=== PATIENT | female | born 1970 | race Caucasian/White ===

== ENCOUNTER 2023-11-20 11:51 | Emergency (ER) | payer OTHER, SELFPAY ==
[2023-11-20 11:56] VITALS: BP 135/93; PULSE 63; RESP 18; TEMP 36.4; O2SAT 99; BMI 33.1
--- NOTE | 2023-11-20 14:00 | ED_ITS ---
HPI - Abdominal Pain General Chief Complaint: Abdominal Pain Stated Complaint: R side pain Time Seen by Provider: 11/20/23 13:38 History of Present Illness HPI narrative: This 53-year-old female comes in reporting brief episodes of right middle abdominal pain that last for a few seconds. These symptoms started over the last day or so. She does not report any fever, nausea, vomiting, diarrhea, or dysuria. She did have a liposuction with panniculectomy about 3 months ago and states that she has not felt well since then and also has numbness in her mid abdomen secondary to that surgery. She does not report any loss of appetite. She arrives here with normal vital signs. Related Data Home Medications ?Medication ?Instructions ?Recorded ?Confirmed atorvastatin 10 mg tablet 10 mg PO DAILY 11/20/23 11/20/23 doxycycline monohydrate 50 mg 50 mg PO DAILY 11/20/23 11/20/23 capsule levothyroxine 50 mcg tablet 50 mcg PO DAILY 11/20/23 11/20/23 metformin 500 mg tablet,extended 500 mg PO BID 11/20/23 11/20/23 release 24 hr oxybutynin chloride 5 mg 5 mg PO DAILY 11/20/23 11/20/23 tablet,extended release 24 hr Previous Rx's ?Medication ?Instructions ?Recorded gabapentin 100 mg capsule 100 mg PO TID #20 caps 11/20/23 ketorolac 10 mg tablet 10 mg PO Q8H 5 days #15 tabs 11/20/23 Allergies Allergy/AdvReac Type Severity Reaction Status Date / Time No Known Drug Allergies Allergy Verified 11/20/23 11:59 Review of Systems Status of ROS Reports: 10 or more systems reviewed and unremarkable except as noted in History and below Narrative Constitutional: No fevers, no weight gain or loss. Eyes: No discharge. No vision changes. HENT: No congestion, no sore throat, no ear pain. Cardiovascular: No chest pain, no palpitations. Respiratory: No shortness of breath, no wheezes, no cough. Gastrointestinal: No vomiting, no diarrhea. Brief episodes of abdominal pain as described above. Genitourinary: No dysuria, no hematuria. Musculoskeletal: Normal range of motion. Skin: No rashes, no pruritis. Neurological: No dizziness, weakness, sensory change, speech change. Endo/Heme/Allergies: No bruising or bleeding. No polydipsia. Pysch: no suicidality, no anxiety, no insomnia. All other systems reviewed and are negative. PFSH PFS Social History Smoking Status: Never smoker How often do you have a drink containing alcohol: never AUDIT-C Alcohol total score: 0 Non-prescribed substance use: denies use Exam Narrative: Exam Narrative: Constitutional: Well-developed, well-nourished, no acute distress. HEENT: Normocephalic, atraumatic. Neck: Normal range of motion. Nontender. Supple. Heart: Regular. No murmurs. Normal rate. Intact distal pulses. Lungs: Clear to auscultation. No chest discomfort. No wheezes, rhonchi, or rales. Abdomen: Normal bowel sounds. Nontender. No rebound tenderness. She currently does not have any discomfort including with deep palpation on exam. Genitalia: Deferred. Back: No midline tenderness. Normal range of motion. Extremities: Normal range of motion. No injury. Skin: Intact. No rash. Warm. No erythema or pallor. Neurologic: No altered sensation. No weakness. Alert and oriented. Psychiatric: No suicidality. No anxiety or depression. No insomnia. Nursing notes and vitals signs are reviewed. Const: Vital Signs, click to edit/add: Vital Signs - 24 hr 11/20/23 11:56 Temperature 97.5 F L Pulse Rate [Left P ulse Oximeter] 63 Respiratory Rate 18 Blood Pressure [Ri ght Upper Arm] 135/93 H Pulse Oximetry 99 Oxygen Delivery Me thod Room Air Course Vital Signs Vital signs: Initial Vital Signs Temperature 97.5 F L 11/20/23 11:56 Temperature Source Temporal Artery Scan 11/20/23 11:56 Pulse Rate 63 11/20/23 11:56 Pulse Rhythm Regular 11/20/23 11:56 Pulse Strength 3+ Normal 11/20/23 11:56 Respiratory Rate 18 11/20/23 11:56 Blood Pressure 135/93 H 11/20/23 11:56 Blood Pressure Mean 107 H 11/20/23 11:56 Blood Pressure Position Sitting 11/20/23 11:56 Pulse Oximetry 99 11/20/23 11:56 Oxygen Delivery Method Room Air 11/20/23 11:56 Vital Signs Temperature 97.5 F L 11/20/23 11:56 Pulse Rate 63 11/20/23 11:56 Respiratory Rate 18 11/20/23 11:56 Blood Pressure 135/93 H 11/20/23 11:56 Pulse Oximetry 99 11/20/23 11:56 Oxygen Delivery Method Room Air 11/20/23 11:56 Temperature 97.5 F L 11/20/23 11:56 Pulse Rate 63 11/20/23 11:56 Respiratory Rate 18 11/20/23 11:56 Blood Pressure 135/93 H 11/20/23 11:56 Pulse Oximetry 99 11/20/23 11:56 Oxygen Delivery Method Room Air 11/20/23 11:56 MDM - Abdominal Pain MDM Narrative Medical decision making narrative: This patient is having brief episodes of abdominal discomfort that are currently not present. She states that she feels normal and has normal vital signs. I did discuss lab and imaging options with the patient and in a process of shared decision-making she declined any studies for now. She does understand certain s ymptoms and signs that would indicate a need for further evaluation. The pain seems to come rather briefly and is more less on the edge of the area where she has numbness secondary to her panniculectomy. It does seem like it is a nerve mediated symptom. She is okay to be discharged home. I did provide prescriptions for Toradol and gabapentin to be used as needed. Discharge Plan Discharge Clinical Impression: Abdominal pain Patient Disposition: Home, Self-Care Condition: Stable Additional Instructions: Take medication as needed and directed. Follow up with MD or return if symptoms are worsening. Prescriptions: New gabapentin 100 mg capsule 100 mg PO TID Qty: 20 2RF ketorolac 10 mg tablet 10 mg PO Q8H 5 Days Qty: 15 0RF No Action atorvastatin 10 mg tablet 10 mg PO DAILY doxycycline monohydrate 50 mg capsule 50 mg PO DAILY levothyroxine 50 mcg tablet 50 mcg PO DAILY oxybutynin chloride 5 mg tablet extended release 24hr 5 mg PO DAILY metformin 500 mg tablet extended release 24 hr 500 mg PO BID Follow Up/Referrals: Evelin Mai MD [Primary Care Provider] - Stand Alone Forms: [facility] Info Instructions
== END 2023-11-20 14:23 | disposition home or self-care (01) ==
LOC: ED 14:23
PROVIDERS: Emergency Provider Emergency Medicine Emergency Medical Services; PCP Family Medicine
DX: R10.9 Unspecified abdominal pain (principal)
CPT/HCPCS: 99283; 99284

== ENCOUNTER 2024-08-11 07:25 | Emergency (ER) | payer OTHER, SELFPAY ==
[2024-08-11] VITALS (13 sets, daily range): BP systolic 137–193; BP diastolic 88–96; PULSE 54–74; RESP 12–18; TEMP 35.5; O2SAT 96–100; BMI 31.6
--- OUTSIDE RECORDS SUMMARY | 2024-08-11 07:28 | XMS_ITS | Clinical Summary ---
Author Organization [employer] Address [address] [place] [address] Care Team Providers Care Buffer Inflated Pad Name Role Phone Luisa Jiang DO Primary Care Provider [phone] Allergies Active Allergy Reactions Criticality Noted Date Comments Morphine Nausea And Vomiting 10/19/2013 Medications MULTIVITAMINS,THER APEUTIC (THERAGRAN ORAL) Take by mouth. Active blood-glucose meterIndications:T ype 2 diabetes mellitus without complication, without long-term current use of insulin (HC) Dispense meter covered by pts insurance. 1 Each 07/30/19 24 Active blood sugar diagnostic stripIndications:T ype 2 diabetes mellitus without complication, without long-term current use of insulin (HC) Dispense item covered by pt ins. E11.9 NIDDM type II - Test 1 time/day 100 Each 3 07/30/19 24 Active lancetsIndications :Type 2 diabetes mellitus without complication, without long-term current use of insulin (HC) Dispense item covered by pt ins. E11.9 NIDDM type II - Test 1 time/day 100 Each 3 07/30/19 24 Active atorvastatin (LIPITOR) 10 mg tabletIndications: Hyperlipidemia, unspecified hyperlipidemia type Take 1 Tablet (10 mg) by mouth at bedtime. 90 Tablet 3 07/29/19 25 Active metFORMIN (GLUCOPHAGE XR) 500 mg Extended-Release tabletIndications: Type 2 diabetes mellitus without complication, without long-term current use of insulin (HC) Take 1 Tablet (500 mg) by mouth two times daily with meals. 180 Tablet 3 07/29/19 25 Active oxybutynin XL (DITROPAN XL) 5 mg CR tabletIndications: Overactive bladder Take 1 Tablet (5 mg) by mouth once daily. 90 Tablet 3 07/29/19 25 Active metroNIDAZOLE (METROGEL) 1 % gelIndications:Ros acea Apply topically to affected area(s) once daily. 60 g 3 07/29/19 25 Active levothyroxine (SYNTHROID) 75 mcg tabletIndications: Subclinical hypothyroidism Take 1 Tablet (75 mcg) by mouth before breakfast. 90 Tablet 3 07/30/19 25 Active metroNIDAZOLE (METROGEL) 1 % gelIndications:Ros acea Apply topically to affected area(s) once daily. 60 g 07/11/19 23 025 Discontin ued(Reord er (E-cancel not sent)) oxybutynin XL (DITROPAN XL) 5 mg CR tabletIndications: Overactive bladder Take 1 Tablet (5 mg) by mouth once daily. 90 Tablet 3 07/24/19 24 025 Discontin ued(Reord er (E-cancel not sent)) atorvastatin (LIPITOR) 10 mg tabletIndications: Hyperlipidemia, unspecified hyperlipidemia type Take 1 Tablet (10 mg) by mouth at bedtime. 90 Tablet 3 07/28/19 24 025 Discontin ued(Reord er (E-cancel not sent)) metFORMIN (GLUCOPHAGE XR) 500 mg Extended-Release tabletIndications: Type 2 diabetes mellitus without complication, without long-term current use of insulin (HC) Take 1 Tablet (500 mg) by mouth two times daily with meals. 180 Tablet 3 10/22/19 24 025 Discontin ued(Reord er (E-cancel not sent)) doxycycline monohydrate 50 mg capsuleIndications :Rosacea Take 1 Capsule (50 mg) by mouth once daily. 90 Capsule 05/03/20 24 025 Discontin ued(*Med complete/ Regimen complete/ Level of care change) levothyroxine (SYNTHROID) 75 mcg tabletIndications: Subclinical hypothyroidism Take 1 Tablet (75 mcg) by mouth before breakfast. 90 Tablet 05/03/20 24 025 Discontin ued(Reord er (E-cancel not sent)) Active Problems Problem Noted Date Diagnosed Date Subclinical hypothyroidism 04/23/2024 Type 2 diabetes mellitus wit hout complication, without long-term current use of insulin 04/23/2024 Prediabetes 04/20/2020 Obesity, Class I, BMI 30-34.9 07/09/2017 Hot flashes 07/09/2017 Rosacea 08/05/2014 Incontinence 08/05/2014 Menorrhagia 10/19/2013 Pap smear of cervix with ASCUS, cannot exclude H GSIL 06/23/2013 Overview (07/20/2021): 2013 ASC-H (noted in scans) 09/06/2013 [place]: (no results available) 07/09/2017 NIL 06/01/2020 NIL/HPV negative 06/27/2021 NIL/HPV negative [facility] [place] [facility] [place]-[facility] after high-grade histology or cytology: Continued surveillance at 3 year intervals is recommended for at least 25 years after treatment of high-grade histology (SRIRAM 2, 3, CIS or AIS) or high-grade cytology (HSIL, AGC, ASC-H, LSIL, Cannot exclude HSIL) even if beyond age 65. Plan: Pap/HPV due 06/2024 Encounters Date Type Department Care Team Description 07/29/2024 7:55 AM SITE CONTROLLER Office Visit [facility] [address] [place] [address] Luias Jiang, DO Physical (54 no concerns); Immunization/Injectio n 07/29/2024 Travel from Last 3 Months Immunizations Name Administration Dates Next Due COVID-19 vaccine (Missy-J& J) [facility] 06/14/2021 Hepatitis A (Adult) 08/20/2011,08/21/2010 Hepatitis B (Adult) 10/12/1993,05/15/1993,1992 INFLUENZA, IIV3 PF (AGE >= 6 MO) 04/23/2024 Influenza A (H1N1), Inactivated 04/28/2009 Influenza Virus, Unspecified 05/12/2008 Influenza, IIV3 (Age >=3 years) 03/17/2014,08/20,04/09/2010 Influenza, IIV4 03/12/2023, 3,06/27/2021,2019,03/16/2018,07/09/2017,06/07/2016 Pneumococcal Conj 20-valent (Prevnar 20) 04/23/2024 Td (Age >=7 Years) 11/04/1994 Tdap 07/29/2024,08/05/2014,08/21/2010 Zoster (Shingrix-RZV, recombinant) 10/26/2020, Family History Medical History Relation Name Comments Diabetes Father Heart Disease Father Hyperlipidemia Father Dementia Mother Lewy Body Demen tia Hyperlipidemia Mother Parkinsonism Mother Anesthesia Malignant Hyperthermia No Family History Blood Disease No Family History Cancer-breast No Family History Cancer-colon No Family History Cancer-ovarian No Family History Premature CHD (under age 60) No Family History Relation Name Status Comments Father Alive Mother Alive Social History Tobacco Use Types Packs/Day Years Used Date Smoking Tobacco: Never Smokeless Tobacco: Never Tobacco Cessation:Counseling Given: Yes Alcohol Use Standard Drinks/Week Comments No 0 (1 standard drink = 0.6 oz pur e alcohol) PHQ-2 Answer Date Recorded PHQ-2 TOTAL SCORE 1 07/29/2024 Social Connections Answer Date Recorded Do you often feel lonely or isolated from those around you? 0 07/29/2024 Financial Resource Strain Answer Date R ecorded Difficulty of Paying Living Expenses 3 07/29/2024 Difficulty of Paying Living Expenses Not on file 07/29/2024 Food Insecurity Answer Date Recorded Do you worry your food will run out before you are able to buy more? 1 07/29/2024 Transportation Needs Answer Date Record ed Does lack of transportation keep you from medica l appointments? 1 07/29/2024 Does lack of transportation keep you from work, meetings or getting things that you need? 1 07/29/2024 Housing Stability Answer Date Recorded What is your housing situation today? 1 07/29/2024 Utilities Answer Date Recorded Do you have trouble paying f or utilities (for example, heat, electricity, water, phone)? 1 07/29/2024 Comments No Sex and Gender Information Value Date Recorded Sex Assigned at Not on file Legal Sex Female 5:24 AM SITE CONTROLLER Gender Identity Not on file Sexual Orientation Not on file Obstetrics History Para Term AB IAB SAB Ectopic Multiple Livin g Live Births 4 4 4 4 Date Outcome GA Total Labor Labor/2nd/3rd Weight Sex Type Anes PTL Sumi A1 A5 Name Clin Term Term Term Term Last Filed Vital Signs Vital Sign Reading Time Taken Comments Blood Pressure 118/84 07/29/2024 8:00 AM SITE CONTROLLER Pulse 72 07/29/2024 8:00 AM SITE CONTROLLER Temperature 36.9 C (98.4 F) 12/23/2018 3:53 PM CDT Respiratory Rate 16 10/21/2013 1:45 PM CDT Oxygen Saturation 98% 07/23/2023 4:10 PM SITE CONTROLLER Inhaled Oxygen Concentration - - Weight 90.1 kg (198 lb 9.6 oz) 07/29/2024 8:00 A M SITE CONTROLLER Height 168 cm (5' 6.14) 07/29/2024 8:00 AM SITE CONTROLLER Body Mass Index 31.92 07/29/2024 8:00 AM SITE CONTROLLER Plan of Treatment Health Maintenance Due Date Last Done Comments COVID-19 vaccine series ( season) 2024 06/14/2021 Mammogram for age 45-75 04/23/2025 04/23/20, 01/23/2023, 01/16/2022, Additional history exists BMI (ht and wt on same day) for age 18+ 07/29/2025 07/29/2024, 07/16/2023, 03/12/2023, Additional history exists Depression screening for age 12+ 07/29/2025 07/29/2024, 07/16/2023, 07/11/2022, Additional history exists Fecal testing sDNA-FIT (Tatamy guard) for age 45-75 04/02/2026 04/02/2023 Pap test for age 21-65 07/29/2027 , 07/29/2024, 06/27/2021, Additional history exists Lipids for age 45-75 07/16/2028 07/16/2023, 07/11/2022, 06/27/2021, Additional history exists Tetanus booster 07/29/2034 07/29/2024, 07/24, 08/21/2010, Additional history exists Hepatitis B series for Diabetes Completed 10/12/1993, 05/15/1993, 04/13/1993 Zoster (shingles) series for age 50+ Completed 10/26/2020, 05/31/2020 HIV for age 15-65 Completed 07/16/2023 Hepatitis C screening for ag e 18-79 Completed 07/16/2023 Influenza for age 50-64 Completed 04/23/20, 03/12/2023, 07/11/2022, Additional history exists Pneumococcal series for age 50+ Completed Tdap Completed 07/29/2024, 07/24, 08/21/2010 Medical Devices Implanted Type Area Roof [employer] Maker Helper Device Identifier Shelf Expiration Date Model / Serial / Lot Sling Miniarc - [id number] Implanted:Qty: 1 on 10/29/2011 by Keira Bernal MD at [facility] N/A: [facility] 03/21/2013 [id number] / / [id number] Procedures Procedure Name Priority Date/Time Associated Diagnosis Comments FORESTRY PATROLMAN THIN PREP PAP SCREEN IMAGED Routine 07/29/2024 8:40 AM SITE CONTROLLER Screening for cervical cancer HPV HIGH RISK Routine 07/29/2024 8:40 AM SITE CONTROLLER Screening for cervical cancer TSH Add On 07/29/2024 8:40 AM SITE CONTROLLER Subclinical hypothyroidism BASIC METABOLIC PANEL Routine 07/29/2024 7:49 AM SITE CONTROLLER Type 2 diabetes mellitus without complication, without long-term current use of insulin (HC) HEMOGLOBIN A1C MONITORING (POCT) Routine 07/29/2024 7:48 AM SITE CONTROLLER Type 2 diabetes mellitus without complication, without long-term current use of insulin (HC) URINE ALBUMIN TO CREATININE RATIO, RANDOM Routine 07/29/2024 7:47 AM SITE CONTROLLER Type 2 diabetes mellitus without complication, without long-term current use of insulin (HC) XR MAMMO BILAT SCREENING Routine 04/23/2024 9:05 AM CDT Breast cancer screening by mammogram ANTI HIV 1/2 Routine 07/16/2023 8:27 AM SITE CONTROLLER Screening for HIV (human immunodeficiency virus) ANTI HCV Routine 07/16/2023 8:27 AM SITE CONTROLLER Need for hepatitis C screening test LIPID PANEL W REFLEX MEASURED LDL Routine 07/16/2023 8:27 AM SITE CONTROLLER Obesity, Class I, BMI 30-34.9 SDNA-FIT EXTERNAL (COLOGUARD) Routine 04/02/2023 7:00 AM CDT Screening for colon cancer from Last 3 Months or Most Recently Relevant to Health Maintenance Results * FORESTRY PATROLMAN THIN PREP PAP SCREEN IMAGED [[id number]] (07/29/2024 8:40 AM SITE CONTROLLER) Case Report Gynecologic Cytology Report Case: [id number] Authorizing Provider: Luisa Jiang DO Collected: 07/29/2024 0840 Ordering Location: [facility] Received: 07/29/2024 0858 Clinic First Screen: Pro Martel Specimen: FORESTRY PATROLMAN ThinPrep Vial Screening, Cervical 08/10/2024 3:05 PM [facility]ITE CONTROLLER [facility] INTERPRETATION/ RESULT NEGATIVE FOR INTRAEPITHELIAL LESION OR MALIGNANCY (NIL) (none) 08/10/2024 3:05 PM SITE CONTROLLER [facility] ENTRAL LABORAT[facility] IMEN ADEQUACY Satisfactory for evaluation Endocervical cells cannot be evaluated due to severe atrophy 08/10/2024 3:05 PM SITE CONTROLLER [facility] HPV REQUEST HPV and PAP 08/10/2024 3:05 PM SITE CONTROLLER [facility] Date of LMP n/a 08/10/2024 3:05 PM SITE CONTROLLER [employer] ENTRAL LABORATORY Last Pap Date 06/27/21 08/10/2024 3:05 PM SITE CONTROLLER [facility] Last Pap Result NIL 3:05 PM SITE CONTROLLER [facility] Abnormal Pap or [place] Bx in last 5 years No 08/10/2024 3:05 PM SITE CONTROLLER [facility] Menstrual Status Ablation 08/10/2024 3:05 PM [facility]ITE CONTROLLER [facility] [place] Bx Done Today No 08/10/2024 3:05 PM [facility] Additional Information None given 08/10/2024 3:05 PM [facility] Comment: Cytology is screened at [facility] - [address], [place] [address] and [facility] - [address] [place] [address], [place] [address] and [facility] - [address] [place] [address] Interpreted at [facility] - [address] [place] [address], [place] [address] Automated Review Successful 08/10/2024 3:05 PM [facility] Comment:Specimen processed s uccessfully by automated sports official device, ThinPrep Imaging System, [employer] ANCILLARY TESTING FORESTRY PATROLMAN HPV Ordered, Please see separate report 08/10/2024 3:05 PM [facility] Note The pap test is a screening technique, not a diagnostic procedure. It is used primarily to screen for squamous cancers and precursor lesions. Published studies have shown that it is subject to both false negative and false positive results. The pap test should not be used as the sole means to diagnose or exclude pre-malignant and malignant lesions. 08/10/2024 3:05 PM [facility] Other (Cervical) Non-Blood / Unknown 07/29/2024 8:40 AM SITE CONTROLLER 07/29/2024 8:58 AM SITE CONTROLLER us Luisa Jiang DO PATHOLOGY/CYTOLOGY Final R esult [facility] [address] [place] [address], [place] * TSH (07/29/2024 8:40 AM SITE CONTROLLER) TSH 1.62 0.40 - 4.50 mIU/L [facility] Blood BLOOD SPECIMEN / Unknown 07/29/2024 8:40 AM SITE CONTROLLER 07/29/2024 8:41 AM SITE CONTROLLER Luisa Davis Apolinar CHEMISTRY Final Resu lt Performing Organization Address City/[facility]/ZIP Co de Phone Number [employer] [facility] [address] [place] [address], [place] [phone] [facility] [address] [place] [address] * HPV HIGH RISK (07/29/2024 8:40 AM SITE CONTROLLER) TYPE 16 Negative Negative 08/02/2024 3:19 PM SITE CONTROLLER [facility] [employer] [facility] TRAL LABORATORY TYPE 18 Negative Negative 08/02/2024 3:19 PM SITE CONTROLLER [facility] TRAL LABORATORY OTHER HIGH RISK TYPES Negative Negative 08/02/2024 3:19 PM [facility]ITE CONTROLL[facility] Other (Cervical) Non-Blood / Unknown 07/29/2024 8:40 AM SITE CONTROLLER 07/29/2024 4:20 PM SITE CONTROLLER Narrative [facility]-CENTRAL LABORATORY - 08/02/2024 3:19 PM SITE CONTROLLER HPV types 16, 18, 31, 33, 35, 39, 45, 51, 52, 56, 58, 59, 66 and 68 DNA were undetectable or below the pre-set threshold. Methodology: [employer] Kimo 4800 HPV Test Luisa Jiang DO MICROBIOLOGY Final Resu lt Performing Organization Address City/[facility]/ZIP Co de Phone Number [facility] [address] [place] [phone], * (ABNORMAL) BASIC METABOLIC PANEL (07/29/2024 7:49 AM SITE CONTROLLER) GLUCOSE 125(H) 65 - 99 mg/dL [facility] Comment: Fasting reference interval For someone without known diabetes, a glucose value between 100 and 125 mg/dL is consistent with prediabetes and should be confirmed with a follow-up test. UREA NITROGEN (BUN) 13 7 - 25 mg/dL [facility] CREATININE 0.77 0.50 - 1.03 mg/dL [facility] EGFR 90 > OR = 60 mL/min/1. 73m2 [facility] BUN/CREATININE RATIO SEE NOTE: 6 - 22 (calc) [facility] Comment: Not Reported: BUN and Creatinine are within reference range. SODIUM 142 135 - 146 mmol/L [facility] POTASSIUM 4.3 3.5 - 5.3 mmol/L [facility] CHLORIDE 103 98 - 110 mmol/L [facility] CARBON DIOXIDE 29 20 - 32 mmol/L [facility] ELECTROLYTE BALANCE 10 7 - 17 mmol/L (calc) [facility] CALCIUM 9.6 8.6 - 10.4 mg/dL [facility] Blood BLOOD SPECIMEN / Unknown 07/29/2024 7:49 AM SITE CONTROLLER 07/29/2024 7:49 AM SITE CONTROLLER Luisa Jiang DO CHEMISTRY Final Resu lt [employer] [facility] [address] [place] [address], [place] [phone] [facility] [address] [place] [address] * (ABNORMAL) POCT Hemoglobin A1C Monitoring (07/29/2024 7:48 AM SITE CONTROLLER) POC HEMOGLOBIN A1C 6.4(H) <6.0 % OF TOTAL HGB [facility] Comment: Any point of care results exhibiting inconsistency with the patient's clinical status should be repeated using a different testing method. Blood BLOOD SPECIMEN / Unknown 07/29/2024 7:48 AM SITE CONTROLLER 07/29/2024 7:48 AM SITE CONTROLLER us Luisa Jiang DO CHEMISTRY Final Resu lt [facility] [address] [place] [address], [place] [phone] [facility] [address] [place] [address] * URINE ALBUMIN TO CREATININE RATIO, RANDOM (07/29/2024 7:47 AM SITE CONTROLLER) ALB RAND URINE <12.0 mg/L 07/29/2024 4:11 PM SITE CONTROLLER [facility] TRAL LABORATORY CREATININE,URINE 0.94 g/L 07/29/19 25 4:11 PM SITE CONTROLLER [facility] TRAL LABORATORY ALBUMIN TO CREATININE RATIO,RAND UR 07/29/2024 4:11 PM SITE CONTROLLER [facility] TRAL LABORATORY Comment:Urine Albumin below measurement range, unable to calculate. Urine URINE SPECIMEN / Unknown Non-Blood / Unknown 07/29/2024 7:47 AM SITE CONTROLLER 07/29/2024 7:47 AM SITE CONTROLLER Narrative [facility] - 07/29/2024 4:11 PM SITE CONTROLLER If Albumin to Creatinine Ratio is elevated, consider the following: Elevations seen with incipient nephropathy associated with diabetes mellitus or hypertension. Stress, exercise,hematuria, and urinary tract infection may also produce elevated results. If clinically indicated, confirm with 24 Hour Albumin to Creatinine Ratio. us Luisa Jiang DO URINE Final Resu lt [facility] [address] [place] [address], [place] * XR MAMMO BILAT SCREENING (04/23/2024 9:05 AM CDT) Anatomical Region Laterality Modality BREASTS, Breast Left, Breast Right Bilateral Mammography Impressions 04/23/2024 3:55 PM CDT There is no radiographic evidence for malignancy. Recommend annual mammograms. MAMMOGRAM ASSESSMENT: ACR 1 Negative PATIENTS: You will also receive a letter with your examination results in an easy to read format. If you have questions about your results, please contact your referring provider. Narrative 04/23/2024 3:55 PM CDT For Patients: As a result of the Century Cures Act, medical imaging exams and procedure reports are released immediately into your electronic medical record. You may view this report before your referring provider. If you have questions, please contact your health care provider. XR MAMMO BILAT SCREENING [[id number]] CLINICAL HISTORY: This is an asymptomatic 54 y.o. patient. INDICATION FOR EXAM: Mammogram Screening. TECHNIQUE: CC & MLO views were obtained. This study was evaluated with the assistance of Computer-Aided Detection. COMPARISON FILM: Yes 01/23/23 [facility] 01/16/22 [facility] FINDINGS: The breasts are almost entirely fatty. There are no dominant masses, suspicious micro calcifications or areas of architectural distortion. Luisa Jiang DO MAMMO Final Resu lt * (ABNORMAL) LIPID PANEL W REFLEX MEASURED LDL (07/16/2023 8:27 AM SITE CONTROLLER) CHOLESTEROL,TOTAL 202(H) 100 - 199 mg/dL 07/16/2023 6:20 PM [facility] TRAL LABORATORY Comment: Cholesterol, Total Reference Ranges Desirable <200 mg/dL Borderline 200-239 mg/dL High >=240 mg/dL TRIGLYCERIDES 205(H) <150 mg/dL 07/16/2023 6:20 PM [facility] TRAL LABORATORY HDL CHOLESTEROL 42 >40 mg/dL 6:20 PM SITE CONTROLLER [facility] TRAL LABORATORY NON-HDL CHOLESTEROL 160(H) <145 mg/dl 07/16/2023 6:20 PM [facility] TRAL LABORATORY CHOL/HDL RATIO 4.81(H) <4.50 07/16/2023 6:20 PM SITE CONTROLLER [facility] TRAL LABORATORY LDL CHOLESTEROL 119 <=130 mg/dL 07/16/2023 6:20 PM [facility] TRAL LAB[facility] VLDL CHOLESTEROL 41(H) <=30 mg/dL 07/16/2023 6:20 PM SITE CONTROLLER [facility] TRAL LABORATORY PROVIDER ORDERED STATUS RANDOM 07/16/2023 6:20 PM [facility] TRAL LABORATORY Blood BLOOD SPECIMEN / Unknown Venipuncture / Unknown 07/16/2023 8:27 AM SITE CONTROLLER 07/16/2023 8:28 AM SITE CONTROLLER Luisa Jiang DO CHEMISTRY Final Resu lt Performing Organization Address City/[facility]/ZIP Co de Phone Number [facility] [address] [place] [phone], [place] * ANTI HCV (07/16/2023 8:27 AM SITE CONTROLLER) [facility] HEPATITIS C ANTIBODY Non-Reacti ve Non-React aditi 07/16/2023 6:11 PM SITE CONTROLLER [facility] Comment:Please note, per www .CDC.gov: If a patient is known to be at high risk of HCV infection, or is symptomatic, and the physician's suspicion of HCV infection is high, HCV RNA testing is often employed and is of diagnostic value, even after an initial negative anti-HCV test result. Blood BLOOD SPECIMEN / Unknown Venipuncture / Unknown 07/16/2023 8:27 AM SITE CONTROLLER 07/16/2023 8:28 AM SITE CONTROLLER Luisa Jiang DO SEND OUTS Final Resu lt Performing Organization Address [facility] Co de Phone Number [facility] [address] [place] [address], [place] * ANTI HIV 1/2 [[id number]] (07/16/2023 8:27 AM SITE CONTROLLER) [facility] HIV-1/HIV-2 SCREEN Non-Reacti ve Non-Reacti ve 07/16/2023 6:08 PM SITE CONTROLLER [facility] Comment:HIV-1 p24 and HIV-1/ HIV-2 Ab Not Detected. Blood BLOOD SPECIMEN / Unknown Venipuncture / Unknown 07/16/2023 8:27 AM SITE CONTROLLER 07/16/2023 8:28 AM SITE CONTROLLER Luisa Jiang DO SEND OUTS Final Resu lt Performing Organization Address City/[facility]/ZIP Co de Phone Number [facility] [address] [place] [address], [place] * SDNA-FIT EXTERNAL (COLOGUARD) (04/02/2023 7:00 AM CDT) [facility] NONINV COLON CA DNA+OCC BLD SCRN STL-IMP Negative Negative 04/09/2023 12:35 AM CDT [employer] (CLIA #:[id number]) Comment: NEGATIVE TEST RESULT. A negative Cologuard result indicates a low likelihood that a colorectal cancer (CRC) or advanced adenoma (adenomatous polyps with more advanced pre-malignant features) is present. The chance that a person with a negative Cologuard test has a colorectal cancer is less than 1 in 1500 (negative predictive value >99.9%) or has an advanced adenoma is less than 5.3% (negative predictive value 94.7%). These data are based on a prospective cross-sectional study of 10,000 individuals at average risk for colorectal cancer who were screened with both Cologuard and colonoscopy. (Ashley Rankin al, N Engl J Med 2014;370(14):9029-2205) The normal value (reference range) for this assay is negative. COLOGUARD RE-SCREENING RECOMMENDATION: Periodic colorectal cancer screening is an important part of preventive healthcare for asymptomatic individuals at average risk for colorectal cancer. Following a negative Cologuard result, the [place] [employer] and U.S. Multi-Society Task Force screening guidelines recommend a Cologuard re-screening interval of 3 years. References: [place] [employer] Guideline for Colorectal Cancer Screening: https://www.cancer.org/cancer/wgquj-tjitko-wvpklm/lyqqhdzyh-rucblnbhn-gbamlpg/ac s-rec ommendations.html.; Shant DK, Arjun CR, Silver LakhaniK, Colorectal Cancer Screening: Recommendations for Physicians and Patients from the U.S. Multi-Society Task Force on Colorectal Cancer Screening , Am J Gastroenterology 2017; 112:2650-8940. TEST DESCRIPTION: Composite algorithmic analysis of stool DNA-biomarkers with hemoglobin immunoassay. Quantitative values of individual biomarkers are not reportable and are not associated with individual biomarker result reference ranges. Cologuard is intended for colorectal cancer screening of adults of either sex, 45 years or older, who are at average-risk for colorectal cancer (CRC). Cologuard has been approved for use by the U.S. FDA. The performance of Cologuard was established in a cross sectional study of average-risk adults aged 50-84. Cologuard performance in patients ages 45 to 49 years was estimated by sub-group analysis of near-age groups. Colonoscopies performed for a positive result may find as the most clinically significant lesion: colorectal cancer [4.0%], advanced adenoma (including sessile serrated polyps greater than or equal to 1cm diameter) [20%] or non- advanced adenoma [31%]; or no colorectal neoplasia [45%]. These estimates are derived from a prospective cross-sectional screening study of 10,000 individuals at average risk for colorectal cancer who were screened with both Cologuard and colonoscopy. (Ashley Fabian et al, N Engl J Med 2014;370(14):7981-1443.) Cologuard may produce a false negative or false positive result (no colorectal cancer or precancerous polyp present at colonoscopy follow up). A negative Cologuard test result does not guarantee the absence of CRC or advanced adenoma (pre-cancer). The current Cologuard screening interval is every 3 years. ([place] [employer] and U.S. Multi-Society Task Force). Cologuard performance data in a 10,000 patient pivotal study using colonoscopy as the reference method can be accessed at the following location: [email or web address].com/results. Additional description of the Cologuard test process, warnings and precautions can be found at [email or web address] [email or web address]. Stool specimen (specimen) (Rectum) 04/02/2023 7:00 AM CDT 04/03/2023 7:38 PM CDT Luisa Jiang DO URINE Final Resu lt Synference (CLIA #:[id number]) [address] [place] [address], [place] [phone] from Last 3 Months or Most Recently Relevant to Health Maintenance Insurance [facility] [employer] [place] [employer] Advance Directives * Full Code (Latest Code Status on File) Date Activated Date Inactivated Comments 10/21/2013 8:51 AM 10/21/2013 4:23 PM * Full Code Date Activated Date Inactivated Comments 10/29/2011 1:15 PM 10/29/2011 6:50 PM * Full Code Date Activated Date Inactivated Comments 10/29/2011 1:07 PM 10/29/2011 1:15 PM Care Teams Buffer Inflated Pad Relationship Specialty Start Date End Date Luisa Jiang [place] [address] PCP - General Family Practice 03/12/23
[2024-08-11] MEDS: KETOROLAC 15 MG/ML inj IVP ×2 (07:53→09:22)
[2024-08-11 08:13] LABS: Basophils Absolute Auto 0.04 K/uL (0.00-0.30); Basophils Percent Auto 0.6 % (0.0-3.0); Eosinophils Percent Auto 1.6 % (0.0-7.0); Hematocrit 42.6 % (33.0-51.0); Hemoglobin* 14.1 gm/dL (12.0-16.0); Immature Granulocytes Abs Auto 0.01 K/uL (0.00-0.30); Immature Granulocytes Pct Auto 0.2 %; Lymphocytes Absolute Auto 2.21 K/uL (0.90-2.90); Lymphocytes Percent Auto 34.6 % (20-44); Mean Corpuscular HGB Conc 33 gm/dL (32-36); Mean Corpuscular Hemoglobin 32 pg (26-34); Mean Corpuscular Volume 95 fL (80-100); Monocytes Percent Auto 5.3 % (0.0-11.0); Neutrophils Absolute Auto 3.69 K/uL (1.7-7.0); Neutrophils Percent Auto 57.7 % (42.0-72.0); Platelet Count* 206 K/uL (140-440); RDW Coefficient of Variation % 12.2 % (11.5-15.5); Red Blood Count 4.48 m/uL (4.00-5.20); White Blood Count* 6.39 K/uL (4.50-11.00)
[2024-08-11 08:16] LABS: Chloride* 104 mmol/L (96-114); Sodium* 140 mmol/L (135-149)
[2024-08-11 08:17] LABS: Potassium* 3.8 mmol/L (3.6-5.1); Slide Review Reflex No
--- NOTE | 2024-08-11 08:18 | ED_ITS ---
HPI - General Adult General Time Seen by Provider: 08:18 Date Seen: 08/11/24 Chief complaint: Flank Pain Stated complaint: R flank pain Time Seen by Provider: 08/11/24 08:17 Source: patient and RN notes reviewed Mode of arrival: ambulatory Limitations: no limitations History of Present Illness HPI narrative: This 54-year-old female is coming in with right lower abdominal pain that started overnight. It was disrupting her sleep. She kept thinking it would go away. It is a dull constant ache now, she did get IV Toradol for pain management from the off going overnight ED provider, that has helped. She has had nausea but no vomiting. She has not ate or drink anything. She does note that about a week ago she stopped an oral supplement that had increased iron as she felt it was making her constipated. Bowels have been normal. She has had a history of kidney stones but notes that this is weight different than any kidney stone she has ever had. She has not noted any fever. She has had a panniculectomy and liposuction and that is her only abdominal surgery, she has not had anything internal done. The pain actually is in her right lower quadrant and does radiate into the back hip area. It is not technically flank, it is in her right lower abdomen. Related Data Home Medications ?Medication ?Instructions ?Recorded ?Confirmed atorvastatin 10 mg tablet 10 mg PO DAILY 11/20/23 08/11/24 doxycycline monohydrate 50 mg 50 mg PO DAILY 11/20/23 11/20/23 capsule levothyroxine 50 mcg tablet 50 mcg PO DAILY 11/20/23 11/20/23 metformin 500 mg tablet,extended 500 mg PO BID 11/20/23 11/20/23 release 24 hr oxybutynin chloride 5 mg 5 mg PO DAILY 11/20/23 08/11/24 tablet,extended release 24 hr levothyroxine 75 mcg tablet mcg DAILY 08/11/24 metronidazole 1 % topical gel topical DAILY 08/11/24 Previous Rx's ?Medication ?Instructions ?Recorded gabapentin 100 mg capsule 100 mg PO TID #20 caps 11/20/23 ketorolac 10 mg tablet 10 mg PO Q8H 5 days #15 tabs 11/20/23 ketorolac 10 mg tablet 10 mg PO Q6H PRN pain #20 tabs 08/11/24 oxycodone 5 mg tablet 5 mg PO Q6H PRN pain #12 tabs 08/11/24 tamsulosin 0.4 mg capsule (Flomax) 0.4 mg PO DAILY #7 caps 08/11/24 Allergies Allergy/AdvReac Type Severity Reaction Status Date / Time No Known Drug Allergies Allergy Verified 08/11/24 09:35 Review of Systems Status of ROS: Reports: 6 or more systems reviewed and unremarkable except as noted in History and below [facility] Medical History (Updated 08/11/24 @ 10:24 by Rosanna Garcia MD) Nephrolithiasis ?N20.0 - Calculus of kidney (ICD-10) Social History Smoking Status: Never smoker How often do you have a drink containing alcohol: never AUDIT-C Alcohol total score: 0 Non-prescribed substance use: denies use Exam Const: Vital Signs, click to edit/add: Vital Signs - 24 hr 08/11/24 07:30 08/11/24 07:57 08/11/24 07:58 Temperature 96 F L Pulse Rate 57 L 59 L Pulse Rate [Right Pulse Oximeter] 54 L Respiratory Rate 18 Blood Pressure 193/96 H Blood Pressure [Ri ght Upper Arm] 167/94 H Pulse Oximetry 99 97 97 [facility] 08/11/24 08:00 08/11/24 08:03 08/11/24 08:04 Temperature Pulse Rate 58 L 60 56 L Pulse Rate [Right Pulse Oximeter] Respiratory Rate 15 12 Blood Pressure 175/95 H Blood Pressure [Ri ght Upper Arm] Pulse Oximetry 97 97 97 [facility] 08/11/24 08:15 08/11/24 08:30 08/11/24 08:32 Temperature Pulse Rate 58 L 64 69 Pulse Rate [Right Pulse Oximeter] Respiratory Rate 15 14 17 Blood Pressure 137/88 Blood Pressure [Ri ght Upper Arm] Pulse Oximetry 97 97 96 [facility] 08/11/24 08:45 08/11/24 09:04 08/11/24 09:15 Temperature Pulse Rate 70 74 68 Pulse Rate [Right Pulse Oximeter] Respiratory Rate 13 15 14 Blood Pressure Blood Pressure [Ri ght Upper Arm] Pulse Oximetry 97 100 98 [facility] 08/11/24 09:30 Temperature Pulse Rate 70 Pulse Rate [Right Pulse Oximeter] Respiratory Rate 18 Blood Pressure Blood Pressure [Ri ght Upper Arm] Pulse Oximetry 96 Oxygen Delivery Me thod This 54-year-old female is alert, interactive, no apparent distress. She is lying the bed in exam room 1. Sclera clear, able to speak in complete sent ences. Neck is supple, no jugular venous distension. Lungs are clear, good air entry, no wheeze or crackles. CV regular rate and rhythm, no murmur, normal S1- S2. Abdomen is not distended, she has normal bowel sounds. She has definite right lower quadrant pain with some guarding, no rebound, do not feel any masses. She is nontender elsewhere throughout her abdomen outside of the right lower quadrant. Patient was ambulatory into the ED of her own accord. Documenting provider has reviewed patient's vital signs: yes Course Course ED Course: Patient has not been able to provide a urinalysis but with her physical examination and her history of kidney stones that do not feel like this, feel that appendicitis is higher on the differential. We are going to have her get a CT abdomen pelvis with IV contrast. She declines any need for further pain management at this time, did get IV Toradol. We will start some IV fluids. She had basic labs ordered which are reassuring, white count is normal. We need CT imaging, will try to collect the urinalysis when able. Patient will let us know if she needs anything further for pain management. We will keep her NPO at this time. Reevaluation(s) Time of Reevaluation #1: 09:17 Reevaluation #1: Patient has return of pain, will give her subsequent 15 mg IV Toradol as it did work before. I see changes around the right kidney, I do wonder if there is a right kidney stone. Awaiting Radiology over-read. Time of Reevaluation #2: 09:52 Reevaluation #2: Have reviewed patient CT with her. She has 2 mm obstructing kidney stone in the upper ureter. We reviewed that this certainly should pass. Discussed use of Flomax. She has use oxycodone in the past and tolerated it. Do think she is likely going to need that on top of the Toradol orally. She has never had to have any interventions for kidney stones. Reviewed that statistically a 2 mm stone should certainly pass. Vital Signs Vital signs: Initial Vital Signs Temperature 96 F L 08/11/24 07:30 Temperature Source Temporal Artery Scan 08/11/24 07:30 Pulse Rate 54 L 08/11/24 07:30 Pulse Rhythm Regular 08/11/24 07:30 Respiratory Rate 18 08/11/24 07:30 Blood Pressure 167/94 H 08/11/24 07:30 Blood Pressure Mean 118 H 08/11/24 07:30 Blood Pressure Position Sitting 08/11/24 07:30 Pulse Oximetry 99 08/11/24 07:30 Oxygen Delivery Method Room Air 08/11/24 07:30 Vital Signs Temperature 96 F L 08/11/24 07:30 Pulse Rate 54 L 08/11/24 07:30 Respiratory Rate 18 08/11/24 07:30 Blood Pressure 167/94 H 08/11/24 07:30 Pulse Oximetry 99 08/11/24 07:30 Oxygen Delivery Method Room Air 08/11/24 07:30 Temperature 96 F L 08/11/24 07:30 Pulse Rate 70 08/11/24 09:30 Respiratory Rate 18 08/11/24 09:30 Blood Pressure 137/88 08/11/24 08:32 Pulse Oximetry 96 08/11/24 09:30 Oxygen Delivery Method Room Air 08/11/24 07:30 Medications Administered Medications: Generic Name Dose Route Start Last Admin Trade Name Freq PRN Reason Stop Dose Admin Sodium Chloride 1,000 mls @ 500 mls/hr 08/11/24 08:26 08/11/24 08:35 0.9 % Sodium Chloride 1000 Ml IV 08/11/24 10:25 500 mls/hr .Q2H MONA Administration Discontinued Medications Generic Name Dose Route Start Last Admin Trade Name Freq PRN Reason Stop Dose Admin Ketorolac Tromethamine 15 mg 08/11/24 07:45 08/11/24 07:53 Ketorolac 15 Mg/Ml Inj IVP 08/11/24 07:46 15 mg ONCE ONE Administration Ketorolac Tromethamine 15 mg 08/11/24 09:17 08/11/24 09:22 Ketorolac 15 Mg/Ml Inj IVP 08/11/24 09:18 15 mg ONCE ONE Administration Medical Decision Making Lab Data Lab results reviewed: Yes I reviewed the patient's lab results Labs: Lab Results 08/11/24 08/11/24 Range/Units 07:50 09:35 WBC 6.39 (4.50-11.00) K/uL RBC 4.48 (4.00-5.20) m/uL Hgb 14.1 (12.0-16.0) gm/dL Hct 42.6 (33.0-51.0) % MCV 95 (80-100) fL MCH 32 (26-34) pg MCHC 33 (32-36) gm/dL RDW Coeff of Mary 12.2 (11.5-15.5) % Plt Count 206 (140-440) K/uL Neut % (Auto) 57.7 (42.0-72.0) % Lymph % (Auto) 34.6 (20-44) % [place] % (Auto) 5.3 (0.0-11.0) % Eos % (Auto) 1.6 (0.0-7.0) % Baso % (Auto) 0.6 (0.0-3.0) % Neut # (Auto) 3.69 (1.7-7.0) K/uL Lymph # (Auto) 2.21 (0.90-2.90) K/uL [place] # (Auto) 0.30 (0.00-0.90) K/UL Eos # (Auto) 0.10 (0.00-0.50) K/uL Baso # (Auto) 0.04 (0.00-0.30) K/uL Abs Immat Gran (auto) 0.01 (0.00-0.30) K/uL Imm/Tot Granulo (auto) 0.2 % Sodium 140 (135-149) mmol/L Potassium 3.8 (3.6-5.1) mmol/L Chloride 104 (96-114) mmol/L Carbon Dioxide 26 (20-32) mmol/L Anion Gap 10 (7-15) mEq/L BUN 15 (7-30) mg/dL Creatinine 0.7 (0.5-1.5) mg/dL Estimated Creat Clear 68.11 Estimated GFR 101 ml/min Glucose 161 H (60-115) mg/dL Calcium 9.2 (8.4-10.6) mg/dL Urine Color Yellow (Yellow) Urine Appearance Clear (Clear) Urine pH 7.0 (5.0-8.5) Ur Specific [place] 1.015 (1.000-1.030) Urine Protein Negative (Negative) Urine Glucose (UA) Negative (Negative) Urine Ketones Negative (Negative) Urine Blood 2+ A (Negative) Urine Nitrite Negative (Negative) Urine Bilirubin Negative (Negative) Urine Urobilinogen 0.2 (0.2-1.0) Ur Leukocyte Esterase 1+ A (Negative) Urine RBC 5-10 A (0-2) Urine WBC 2-5 (0-5) Ur Squamous Epith Cells Few (None-Few) Urine Bacteria Few A (None) Imaging Data CT scan - abdomen: Attestation: I have reviewed the pertinent imaging results. My impression: Did visualize her CT and do see some perinephric stranding around the right kidney, some hydronephrosis on my preliminary review. This presumably is likely from a kidney stone, need to await Radiology over-read. Given patient's clinical presentation, normal white count and lack of fever, doubt infection. Radiologist's impression: Patient: ABEL CARRILLO Facility:?[facility] Patient ID:?[id number] Site Patient ID:?[id number]. Site :?[id number] Study:?CT-Abdomen/Pelvis 96CC ISOVUE 370-08/11/2024 9:06:58 AM Ordering Physician:Smiley Marte Final Report: Indication: RLQ ABD PAIN, NAUSEA Technique: CT abdomen/pelvis with IV contrast, utilizing 96 mL Isovue 370 Comparison: CT abdomen/pelvis on February 09, 2018 Findings: Lower thorax: Unremarkable Abdomen/pelvis: Mild diffuse hepatic steatosis. Subcentimeter hypoattenuating lesion in the right hepatic lobe, near the hepatic dome, likely a benign cyst/hemangioma. No suspicious hepatic lesions. The gallbladder and biliary system are unremarkable. The spleen, pancreas, and bilateral adrenal glands are unremarkable in appearance. The kidneys are normal in size and perfused in a normal fashion. Mild right perinephric stranding. There is mild right-sided hydroureteronephrosis secondary to a 2 millimeter stone in the proximal right ureter. There is a nonobstructing 2 millimeter stone seen at the lower pole of the left kidney. No left-sided hydroureteronephrosis. The bladder is unremarkable in appearance. The uterus and bilateral adnexa are unremarkable in appearance. There is no evidence of bowel obstruction or inflammation. The appendix is normal. Colonic diverticulosis without CT evidence of acute diverticulitis. No free air, free fluid, or abscess. No abdominopelvic lymphadenopathy. Trace calcific atherosclerosis of the abdominal aorta. Multiple pelvic phleboliths. Soft tissue/musculoskeletal: Tiny fat containing umbilical hernia. The bones are unremarkable in appearance for the patient`s age. Impression: 1. Mild right-sided hydroureteronephrosis secondary to a 2 millimeter obstructing stone in the proximal right ureter. 2. Additional incidental findings as detailed above. Please note that all CT scans at this facility use dose modulation, iterative re construction, and/or weight-based dosing when appropriate to reduce radiation dose to as low as reasonably achievable. Dictated by Matheus Gibson MD @ 08/11/2024 9:27:56 AM (Electronic Signature) Discharge Plan Discharge Clinical Impression: Renal colic on right side, Nephrolithiasis Patient Disposition: Home, Self-Care Condition: Stable Instructions: Kidney Stones (ED), Renal Colic (ED) Additional Instructions: Schedule clinic follow-up within the next week. If the stone is not passing, may need to be referred to Urology which can be done through your primary clinic. Drink plenty of fluids, including water, for goal of keeping urine clear looking. If you have not had previous kidney stones identified before, strain urine and collect stone to take to your primary care clinic for stone analysis. Tylenol a 1000 mg 3 times a day baseline for pain. Take Flomax daily until the stone has passed. Toradol 10 mg up to 4 times a day if needed for extra pain control. If you are getting a prescription for narcotics, they can be constipating and may need bowel management with MiraLax 17 g daily. If MiraLax is not enough, then senna 1-2 tablets once to twice daily can be used as well. Should your pain management be inadequate, develop vomiting, or have fever develop in the context of a kidney stone, need to return to the ER for further evaluation. Activity Level: Activity as Tolerated Activity Detail: No driving or operating machinery while on oxycodone. Prescriptions: New tamsulosin [Flomax] 0.4 mg capsule 0.4 mg PO DAILY Qty: 7 0RF ketorolac 10 mg tablet 10 mg PO Q6H PRN (Reason: pain) Qty: 20 0RF Rx Instructions: maximum total duration of 5 days from all oral, intranasal, or parenteral formulations oxycodone 5 mg tablet 5 mg PO Q6H PRN (Reason: pain) Qty: 12 0RF No Action atorvastatin 10 mg tablet 10 mg PO DAILY doxycycline monohydrate 50 mg capsule 50 mg PO DAILY levothyroxine 50 mcg tablet 50 mcg PO DAILY oxybutynin chloride 5 mg tablet extended release 24hr 5 mg PO DAILY metformin 500 mg tablet extended release 24 hr 500 mg PO BID gabapentin 100 mg capsule 100 mg PO TID Qty: 20 2RF ketorolac 10 mg tablet 10 mg PO Q8H 5 Days Qty: 15 0RF levothyroxine 75 mcg tablet DAILY metronidazole 1 % gel topical DAILY Follow Up/Referrals: Luisa Jiang DO [Primary Care Provider] - Stand Alone Forms: MyHealth Info Instructions
[2024-08-11 08:19] LABS: Creatinine* 0.7 mg/dL (0.5-1.5); Est. Creatinine Clearance* 68.11; Estimated Glomerular Filt Rate 101 ml/min
[2024-08-11 08:20] LABS: Anion Gap 10 mEq/L (7-15); Blood Urea Nitrogen* 15 mg/dL (7-30); Calcium* 9.2 mg/dL (8.4-10.6); Carbon Dioxide* 26 mmol/L (20-32); Glucose* 161 mg/dL (60-115)
--- NOTE | 2024-08-11 08:26 | CRLHL7_ITS ---
For Patients: As a result of the Century Cures Act, medical imaging exams and procedure reports are released immediately into your electronic medical record. You may view this report before your referring provider. If you have questions, please contact your health care provider. Indication: RLQ ABD PAIN, NAUSEA Technique: CT abdomen/pelvis with IV contrast, utilizing 96 mL Isovue 370 Comparison: CT abdomen/pelvis on February 09, 2018 Findings: Lower thorax: Unremarkable Abdomen/pelvis: Mild diffuse hepatic steatosis. Subcentimeter hypoattenuating lesion in the right hepatic lobe, near the hepatic dome, likely a benign cyst/hemangioma. No suspicious hepatic lesions. The gallbladder and biliary system are unremarkable. The spleen, pancreas, and bilateral adrenal glands are unremarkable in appearance. The kidneys are normal in size and perfused in a normal fashion. Mild right perinephric stranding. There is mild right-sided hydroureteronephrosis secondary to a 2 millimeter stone in the proximal right ureter. There is a nonobstructing 2 millimeter stone seen at the lower pole of the left kidney. No left-sided hydroureteronephrosis. The bladder is unremarkable in appearance. The uterus and bilateral adnexa are unremarkable in appearance. There is no evidence of bowel obstruction or inflammation. The appendix is normal. Colonic diverticulosis without CT evidence of acute diverticulitis. No free air, free fluid, or abscess. No abdominopelvic lymphadenopathy. Trace calcific atherosclerosis of the abdominal aorta. Multiple pelvic phleboliths. Soft tissue/musculoskeletal: Tiny fat containing umbilical hernia. The bones are unremarkable in appearance for the patient`s age. Impression: 1. Mild right-sided hydroureteronephrosis secondary to a 2 millimeter obstructing stone in the proximal right ureter. 2. Additional incidental findings as detailed above. Please note that all CT scans at this facility use dose modulation, iterative reconstruction, and/or weight-based dosing when appropriate to reduce radiation dose to as low as reasonably achievable. Dictated by Matheus Gibson MD @ 08/11/2024 9:27:56 AM (Electronically Signed)
--- OUTSIDE RECORDS SUMMARY | 2024-08-11 08:30 | XMS_ITS | Clinical Summary ---
Author Organization [facility] Address [address] [place] [address] Care Team Providers Care Electronics Maintenance Technician Name Role Phone Luisa Jiang DO Primary Care Provider [phone] Allergies Active Allergy Reactions Criticality Noted Date [...] (07/20/2021): 2013 ASC-H (noted in scans) 09/06/2013 Coy: (no results available) 07/09/2017 NIL 06/01/2020 NIL/HPV negative 06/27/2021 NIL/HPV negative ASCCP recommends senior living follow-up after high-grade histology or cytology: Continued surveillance at 3 year intervals is recommended for at least 25 years after treatment of high-grade histology (SRIRAM 2, 3, CIS or AIS) or high-grade cytology (HSIL, AGC, ASC-H, LSIL, Cannot exclude HSIL) even if beyond age 65. Plan: Pap/HPV due 06/2024 Encounters Date Type Department Care Team Description 07/29/2024 7:55 AM ROW B[facility] Office Visit [facility] [address] [place] [address] Luisa Jiang, DO Physical (54 no concerns); Immunization/Injectio [...] on file Legal Sex Female 5:24 AM ROW BOSS [facility]EING Gender Identity Not on file Sexual Orientation Not on file Obstetrics History Para Term AB IAB SAB Ectopic Multiple Livin g Live Births 4 4 4 4 Date Outcome GA Total Labor Labor/2nd/3rd Weight Sex Type Anes PTL Sumi A1 A5 Name Clin Term Term Term Term Last Filed Vital Signs Vital Sign Reading Time Taken Comments Blood Pressure 118/84 07/29/2024 8:00 AM R[facility] BOSS [facility]EING Pulse 72 07/29/2024 8:00 AM [employer] Temperature 36.9 C (98.4 F) 12/23/2018 3:53 PM CDT Respiratory Rate 16 10/21/2013 1:45 PM CDT Oxygen Saturation 98% 07/23/2023 4:10 PM [facility]EING Inhaled Oxygen Concentration - - Weight 90.1 kg (198 lb 9.6 oz) 07/29/2024 8:00 A M [employer] Height 168 cm (5' 6.14) 07/29/2024 8:00 AM [facility] Body Mass Index 31.92 07/29/2024 8:00 AM [facility] Plan of Treatment Health Maintenance Due Date Last Done Comments COVID-19 vaccine series ( season) 2024 06/14/2021 Mammogram for age 45-75 04/23/2025 04/23/20, 01/23/2023, 01/16/2022, Additional history exists BMI (ht and wt on same day) for age 18+ 07/29/2025 07/29/2024, 07/16/2023, 03/12/2023, Additional history exists Depression screening for age 12+ 07/29/2025 07/29/2024, 07/16/2023, 07/11/2022, Additional history exists Fecal testing sDNA-FIT (Bryce guard) for age 45-75 04/02/2026 04/02/2023 Pap [...] 07/24, 08/21/2010 Medical Devices Implanted Type Area Packerhead Machine Operator Device Identifier Shelf Expiration Date Model / Serial / Lot Sling Miniarc - [id number] Implanted:Qty: 1 on 10/29/2011 by Keira Bernal MD at [facility] N/A: [facility] 03/21/2013 [id number] / / [id number] Procedures Procedure Name Priority Date/Time Associated Diagnosis Comments RN VISITING THIN PREP PAP SCREEN IMAGED Routine 07/29/2024 8:40 AM R[facility] B[facility] Screening for cervical cancer HPV HIGH RISK Routine 07/29/2024 8:40 AM [facility] Screening for cervical cancer TSH Add On 07/29/2024 8:40 AM [facility] Subclinical hypothyroidism BASIC METABOLIC PANEL Routine 07/29/2024 7:49 AM [employer] [facility] Type 2 diabetes mellitus without complication, without long-term current use of insulin (HC) HEMOGLOBIN A1C MONITORING (POCT) Routine 07/29/2024 7:48 AM [facility] [facility] Type 2 diabetes mellitus without complication, without long-term current use of insulin (HC) URINE ALBUMIN TO CREATININE RATIO, RANDOM Routine 07/29/2024 7:47 AM [facility] Type 2 diabetes mellitus without complication, without long-term current use of insulin (HC) XR MAMMO BILAT SCREENING Routine 04/23/2024 9:05 AM CDT Breast cancer screening by mammogram ANTI HIV 1/2 Routine 07/16/2023 8:27 AM [facility] Screening for HIV (human immunodeficiency virus) ANTI HCV Routine 07/16/2023 8:27 AM [employer] [facility] Need for hepatitis C screening test LIPID PANEL W REFLEX MEASURED LDL Routine 07/16/2023 8:27 AM [facility] [facility] Obesity, Class I, BMI 30-34.9 SDNA-FIT EXTERNAL (COLOGUARD) Routine 04/02/2023 7:00 AM CDT Screening for colon cancer from Last 3 Months or Most Recently Relevant to Health Maintenance Results * RN VISITING THIN PREP PAP SCREEN IMAGED [[id number]] (07/29/2024 8:40 AM ROW [facility]EING) Case Report Gynecologic Cytology Report Case: [id number] Authorizing Provider: Luisa Jiang DO Collected: 07/29/2024 0840 Ordering Location: [facility] Received: 07/29/2024 0858 Clinic First Screen: Pro Martel Specimen: RN VISITING ThinPrep Vial Screening, Cervical 08/10/2024 3:05 PM [facility] INTERPRETATION/ RESULT NEGATIVE FOR INTRAEPITHELIAL LESION OR MALIGNANCY (NIL) (none) 08/10/2024 3:05 PM [facility] [employer] ENTRAL LABORATORY IMEN ADEQUACY Satisfactory for evaluation Endocervical cells cannot be evaluated due to severe atrophy 08/10/2024 3:05 PM [facility] [facility] HPV REQUEST HPV and PAP 08/10/2024 3:05 PM [facility] [employer] Date of LMP n/a 08/10/2024 3:05 PM R[facility] [employer] ENTRAL LABORATORY Last Pap Date 06/27/21 08/10/2024 3:05 PM [facility] [facility] Last Pap Result NIL 3:05 PM [facility] [employer] Abnormal Pap or Coy Bx in last 5 years No 08/10/2024 3:05 PM [facility] [employer] Menstrual Status Ablation 08/10/2024 3:05 PM [facility] Coy Bx Done Today No 08/10/2024 3:05 PM [facility] Additional Information None given 08/10/2024 3:05 PM [facility] Comment: Cytology is screened at [facility] - [address], [place] [address] and [facility] - [address] [place] [address], [place] [address] and [facility] - [address] [place] [address] Interpreted at [facility] - [address] [place] [address], [place] [address] Automated Review Successful 08/10/2024 3:[address] [facility] Comment:Specimen processed s uccessfully by automated senior copywriter device, ThinPrep Imaging System, [employer] ANCILLARY TESTING RN VISITING HPV Ordered, Please see separate report 08/10/2024 3:[address] [facility] Note The pap test is a screening technique, not a diagnostic procedure. It is used primarily to screen for squamous cancers and precursor lesions. Published studies have shown that it is subject to both false negative and false positive results. The pap test should not be used as the sole means to diagnose or exclude pre-malignant and malignant lesions. 08/10/2024 3:05 PM [facility] Other (Cervical) Non-Blood / Unknown 07/29/2024 8:40 AM [facility]EING 07/29/2024 8:58 AM [employer] [facility]EING us Luisa Jiang DO PATHOLOGY/CYTOLOGY Final R esult [facility] [address] [place] [address], [place] * TSH (07/29/2024 8:40 AM ROW BOSS [facility]EING) TSH 1.62 0.40 - 4.50 mIU/L [employer] [facility] Blood BLOOD SPECIMEN / Unknown 07/29/2024 8:40 AM R[facility] [facility]EING 07/29/2024 8:41 AM [employer] [facility]EING Luisa Davis Apolinar CHEMISTRY Final Resu lt Performing Organization Address City/[facility]/ZIP Co de Phone Number [employer] [facility] [address] [place] [address], [place] [phone] [facility] [address] [place] [address] * HPV HIGH RISK (07/29/2024 8:40 AM ROW BOSS [facility]EING) TYPE 16 Negative Negative 08/02/2024 3:19 PM [facility] [employer] [facility] TRAL LABORATORY TYPE 18 Negative Negative 08/02/2024 3:19 PM [facility] TRAL LABORATORY OTHER HIGH RISK TYPES Negative Negative 08/02/2024 3:19 PM [facility] Other (Cervical) Non-Blood / Unknown 07/29/2024 8:40 AM ROW [facility]OSS [facility]EING 07/29/2024 4:20 PM [facility] [facility]EING Narrative [facility] LABOR[facility]-CENTRAL LABORATORY - 08/02/2024 3:19 PM ROW BOSS [facility]EING HPV types 16, 18, 31, 33, 35, 39, 45, 51, 52, 56, 58, 59, 66 and 68 DNA were undetectable or below the pre-set threshold. Methodology: sones Kimo 4800 HPV Test Luisa Jiang DO MICROBIOLOGY Final Resu lt Performing Organization Address City/[facility]/ZIP Co de Phone Number [facility] [address] [place] [phone], * (ABNORMAL) BASIC METABOLIC PANEL (07/29/2024 7:49 AM ROW BOSS [facility]EING) GLUCOSE 125(H) 65 - 99 mg/dL [facility] Comment: Fasting reference interval For someone without known diabetes, a glucose value between 100 and 125 mg/dL is consistent with prediabetes and should be confirmed with a follow-up test. UREA NITROGEN (BUN) 13 7 - 25 mg/dL [facility] CREATININE 0.77 0.50 - 1.03 mg/dL [facility] EGFR 90 > OR = [...] BLOOD SPECIMEN / Unknown 07/29/2024 7:49 AM ROW BOSS [facility]EING 07/29/2024 7:49 AM R[facility] [facility]EING Luisa Jiang DO CHEMISTRY Final Resu lt [employer] [facility] [address] [place] [address], [place] [phone] [facility] [address] [place] [address] * (ABNORMAL) POCT Hemoglobin A1C Monitoring (07/29/2024 7:48 AM ROW BOSS [facility]EING) POC HEMOGLOBIN A1C 6.4(H) <6.0 % OF TOTAL HGB [facility] Comment: Any point of care results exhibiting inconsistency with the patient's clinical status should be repeated using a different testing method. Blood BLOOD SPECIMEN / Unknown 07/29/2024 7:48 AM ROW [facility]OSS [facility]EING 07/29/2024 7:48 AM R[facility] [facility]EING us Luisa Jiang DO CHEMISTRY Final Resu lt [facility] [address] [place] [address], [place] [phone] [facility] [address] [place] [address] * URINE ALBUMIN TO CREATININE RATIO, RANDOM (07/29/2024 7:47 AM ROW BOSS [facility]EING) ALB RAND URINE <12.0 mg/L 07/29/2024 4:11 PM ROW BOSS [facility]EING [facility] TRAL LABORATORY CREATININE,URINE 0.94 g/L 07/29/19 25 4:11 PM [facility] TRAL LABORATORY ALBUMIN TO CREATININE RATIO,RAND UR 07/29/2024 4:11 PM [facility] TRAL LABORATORY Comment:Urine Albumin below measurement range, unable to calculate. Urine URINE SPECIMEN / Unknown Non-Blood / Unknown 07/29/2024 7:47 AM ROW BOSS HOEING 07/29/2024 7:47 AM ROW BOSS HOEING Narrative [facility] - 07/29/2024 4:11 PM ROW BOSS [facility]EING If Albumin to Creatinine Ratio is elevated, consider the following: Elevations seen with incipient nephropathy associated with diabetes mellitus or hypertension. Stress, exercise,hematuria, and urinary tract infection may also produce elevated results. If clinically indicated, confirm with 24 Hour Albumin to Creatinine Ratio. us Luisa Jiang DO URINE Final Resu lt [facility] [address] [place] [address], [place] * XR MAMMO BILAT SCREENING (04/23/2024 [...] health care provider. XR MAMMO BILAT SCREENING [[id number]] CLINICAL HISTORY: This is an asymptomatic 54 y.o. patient. INDICATION FOR EXAM: Mammogram Screening. TECHNIQUE: CC & MLO views were obtained. This study was evaluated with the assistance of Computer-Aided Detection. COMPARISON FILM: Yes 01/23/23 [facility] 01/16/22 [facility] FINDINGS: The breasts are almost entirely fatty. There are no dominant masses, suspicious micro calcifications or areas of architectural distortion. Luisa Jiang DO MAMMO Final Resu lt * (ABNORMAL) LIPID PANEL W REFLEX MEASURED LDL (07/16/2023 8:27 AM ROW BOSS HOEING) CHOLESTEROL,TOTAL 202(H) 100 - 199 mg/dL 07/16/2023 6:20 PM [facility] TRAL LABORATORY Comment: Cholesterol, Total Reference Ranges Desirable <200 mg/dL Borderline 200-239 mg/dL High >=240 mg/dL TRIGLYCERIDES 205(H) <150 mg/dL 07/16/2023 6:20 PM [facility] TRAL LABORATORY HDL CHOLESTEROL 42 >40 mg/dL 6:20 PM [facility] TRAL LABORATORY NON-HDL CHOLESTEROL 160(H) <145 mg/dl 07/16/2023 6:20 PM [facility] TRAL LABORATORY CHOL/HDL RATIO 4.81(H) <4.50 07/16/2023 6:20 PM [facility] TRAL LABORATORY LDL CHOLESTEROL 119 <=130 mg/dL 07/16/2023 6:20 PM [facility] TRAL LABORATORY VLDL CHOLESTEROL 41(H) <=30 mg/dL 07/16/2023 6:20 PM [facility] TRAL LABORATORY PROVIDER ORDERED STATUS RANDOM 07/16/2023 6:20 PM [facility] TRAL LABORATORY Blood BLOOD SPECIMEN / Unknown Venipuncture / Unknown 07/16/2023 8:27 AM ROW BOSS [facility]EING 07/16/2023 8:28 AM ROW BOSS [facility]EING Luisa Jiang DO CHEMISTRY Final Resu lt Performing Organization Address City/[facility]/ZIP Co de Phone Number [facility] [employer] LABORAT[facility] [address] [place] [address], [place] * ANTI HCV (07/16/2023 8:27 AM ROW BOSS [facility]EING) [facility] HEPATITIS C ANTIBODY Non-Reacti ve Non-React aditi 07/16/2023 6:11 PM R[facility] [facility] Comment:Please note, per www .CDC.gov: If a patient is known to be at high risk of HCV infection, or is symptomatic, and the physician's suspicion of HCV infection is high, HCV RNA testing is often employed and is of diagnostic value, even after an initial negative anti-HCV test result. Blood BLOOD SPECIMEN / Unknown Venipuncture / Unknown 07/16/2023 8:27 AM ROW BOSS [facility]EING 07/16/2023 8:28 AM ROW BOSS [facility]EING Luisa Jiang DO SEND OUTS Final Resu lt Performing Organization Address [facility] Co de Phone Number [facility] [employer] [facility] [address] [place] [address], [place] * ANTI HIV 1/2 [15970.0] (07/16/2023 8:27 AM ROW BOSS [facility]EING) [facility] HIV-1/HIV-2 SCREEN Non-Reacti ve Non-Reacti ve 07/16/2023 6:08 PM [facility] Comment:HIV-1 p24 and HIV-1/ HIV-2 Ab Not Detected. Blood BLOOD SPECIMEN / Unknown Venipuncture / Unknown 07/16/2023 8:27 AM ROW BOSS [facility]EING 07/16/2023 8:28 AM R[facility] [facility]EING Luisa Jiang DO SEND OUTS Final Resu lt Performing Organization Address City/[facility]/ZIP Co de Phone Number [facility] [employer] [facility] [address] [place] [address], [place] * SDNA-FIT EXTERNAL (COLOGUARD) (04/02/2023 7:00 AM CDT) [facility] NONINV COLON CA DNA+OCC BLD SCRN STL-IMP Negative Negative 04/09/2023 12:35 AM CDT [employer] (CLIA #:[id number]) Comment: NEGATIVE TEST RESULT. A negative Cologuard [...] (Ashley Rankin al, N Engl J Med 2014;370(14):7626-6647) The normal value (reference range) for this assay is negative. COLOGUARD RE-SCREENING RECOMMENDATION: Periodic colorectal cancer screening is an important part of preventive healthcare for asymptomatic individuals at average risk for colorectal cancer. Following a negative Cologuard result, the [place] [employer] and U.S. Multi-Society Task Force screening guidelines recommend a Cologuard re-screening interval of 3 years. References: [place] [employer] Guideline for Colorectal Cancer Screening: https://www.cancer.org/cancer/arquo-bixrtb-tvzspv/wbrgznziu-dhsdmfnml-lbyikfv/ac s-rec ommendations.html.; Shant DK, Arjun CR, Silver LakhaniK, Colorectal Cancer Screening: Recommendations for Physicians and Patients from the U.S. Multi-Society Task Force on Colorectal Cancer Screening , Am J Gastroenterology 2017; 112:8337-1850. TEST DESCRIPTION: Composite algorithmic analysis of stool [...] Fabian et al, N Engl J Med 2014;370(14):3775-7559.) Cologuard may produce a false negative or false positive result (no colorectal cancer or precancerous polyp present at colonoscopy follow up). A negative Cologuard test result does not guarantee the absence of CRC or advanced adenoma (pre-cancer). The current Cologuard screening interval is every 3 years. ([place] [employer] and U.S. Multi-Society Task Force). Cologuard performance data in a 10,000 patient pivotal study using colonoscopy as the reference method can be accessed at the following location: www.[employer]Run/results. Additional description of the Cologuard test process, warnings and precautions can be found at www.[employer].iHydroRun. Stool specimen (specimen) (Rectum) 04/02/2023 7:00 AM CDT 04/03/2023 7:38 PM CDT Luisa Jiang DO URINE Final Resu lt [employer] (CLIA #:[id number]) [address] [place] [address], [place] [phone] from Last 3 Months or Most Recently Relevant to Health Maintenance Insurance [facility] [employer] [place] [employer] Advance Directives * Full Code (Latest Code Status on File) Date Activated Date Inactivated Comments 10/21/2013 8:51 AM 10/21/2013 4:23 PM * Full Code Date Activated Date Inactivated Comments 10/29/2011 1:15 PM 10/29/2011 6:50 PM * Full Code Date Activated Date Inactivated Comments 10/29/2011 1:07 PM 10/29/2011 1:15 PM Care Teams Electronics Maintenance Technician Relationship Specialty Start Date End Date Luisa Jiang [place] [address] PCP - General Family Practice 03/12/23
[2024-08-11] MEDS: 0.9 % SODIUM CHLORIDE 1000 ml 1,000 ML 500 ML IV (08:35)
[2024-08-11 09:43] LABS: Appearance Urine Clear (Clear); Bilirubin Urine Negative (Negative); Blood Urine 2+ (Negative); Color Urine Yellow (Yellow); Glucose Urine Negative (Negative); Ketones Urine Negative (Negative); Leukocyte Esterase Urine 1+ (Negative); Nitrite Urine Negative (Negative); Protein Urine Negative (Negative); Specific Gravity Urine 1.015 (1.000-1.030); Urobilinogen Urine 0.2 (0.2-1.0)
[2024-08-11 10:04] LABS: Bacteria Urine Few; Squamous Epithelial Cell Urine Few (None-Few)
== END 2024-08-11 10:56 | disposition home or self-care (01) ==
PROVIDERS: Family Medicine; Emergency Provider Family Medicine; PCP Family Medicine
DX: N20.0 Calculus of kidney (principal)
CPT/HCPCS: 36415; 74177; 80048; 81001; 85025; 87086; 96374; 96376; 99284; J1885; J7030; Q9967

== ENCOUNTER 2025-02-25 18:02 | Outpatient (CLI) | payer OTHER, SELFPAY | END 2025-02-25 18:03 | disposition home or self-care (01) | LOC: NFLDREF 03-02 16:32 | PROVIDERS: PCP Family Medicine; Referring Provider Family Medicine; Visit Provider Physician Assistant | DX: R31.9 Hematuria, unspecified (principal); N39.0 Urinary tract infection, site not specified | CPT/HCPCS: 87086 ==